=== PATIENT | female | born 1965 | race African-American/Black ===

== ENCOUNTER 2016-07-08 11:51 | Emergency (ER) | payer MEDICAID, OTHER ==
[~2016-07-08] VITALS: Ht 162.6 cm; Wt 83.0 kg
[~2016-07-08 11:51] MED LIST: NORCO 5-325 TA1 EACH PO
[2016-07-08] MEDS ORDERED: traMADol 50mg tab ORAL ONE (12:15)
--- NOTE | 2016-07-08 12:29 | Emergency Room Report ---
History of Present Illness General Chief Complaint: Lower Extremity Injury Source: Patient (DEANDRE RUSSELL) Present Illness HPI The patient is a 51-year-old female presenting for left ankle pain which began today. The patient states that she was walking and stepped on a rock and felt the ankle roll underneath her. The patient experienced pain and swelling to the area. Pain is described as a 9/10 dull ache it is worse with walking. No radiating pain. Patient denies any prior injury to the ankle. The patient denies any numbness or tingling. The patient has not tried any pain medications (DEANDRE RUSSELL P.A.) Allergies: Coded Allergies: AMOXICILLIN (Verified Allergy, Severe, Anaphylaxis & GI UPSET, 03/02/12) Patient History Past Medical History: see triage record Pertinent Family History: none Reviewed Nursing Documentation: PMH: Agreed, PSxH: Agreed (DEANDRE RUSSELL) Nursing Documentation-PMH Hx Cerebrovascular Accident: No - SCIATICA (DEANDRE RUSSELL.ABrett) Review of Systems All Other Systems: negative except mentioned in HPI (DEANDRE RUSSELL P.ABrett) Physical Exam Vital Signs Date Time Temp Pulse Resp B/P Pulse Ox O2 Delivery O2 Flow Rate FiO2 07/08/16 11:57 98.1 78 20 120/71 100 Room Air Sp02 EP Interpretation: reviewed, normal General Appearance: no apparent distress, alert, GCS 15, non-toxic Head: normocephalic, atraumatic Eyes: bilateral eye PERRL, bilateral eye normal inspection Musculoskeletal: back normal, normal range of motion, swelling - TTP over lateral ankle, tender - TTP over the lateral mal. Neurologic: alert, oriented x3, responsive, motor strength/tone normal, sensory intact, speech normal, abnormal gait - antalgic gait Psychiatric: judgement/insight normal, memory normal, mood/affect normal, no suicidal/homicidal ideation Skin: normal color, no rash, warm/dry, well hydrated Lymphatic: no adenopathy (DEANDRE RUSSELL.ABrett) Procedures Splinting Splinting : Consent: Verbal Location: L ankle Hand-Made Type: plaster Splint: poserior short Pre-Proc Neuro Vasc Exam: normal Post-Proc Neuro Vasc Exam: normal Patient Tolerated: Well Complications: None (DEANDRE RUSSELL.[place]) Medical Decision Making PA Attestation Dr. Temple is my supervising physician. Patient management was discussed with my supervising physician (DEANDRE RUSSELL) Diagnostic Impression: Primary Impression: Ankle sprain ER Course The patient is a 51-year-old female presenting for left ankle pain which began today Ddx considered include but not limited to sprain/strain, fracture, contusion PE: vitals WNL. NAD Left ankle: There is 1+ pitting edema to the lateral malleolus with overlying tenderness to palpation. No ecchymosis. Lack of range of motion Pt walks with antalgic gait Xray shows + STS. Otherwise unremarkable Pt is given motrin and tramadol for pain with good relief. Posterior short leg splint is placed and pt is given crutches. ER precautions are given and the patient will Fu with PMD (DEANDRE RUSSELL) ER Course Scribe documentation reviewed by me and is accurate (Timothy Temple M.D.) Other X-Ray Diagnostic Results Other X-Ray Diagnostic Results : X-Ray Ordered: L ankle Date: Jul 08, 2016 EP Interpretation: Yes Findings: no fractures, no dislocation, other - + STS Number of Views: 3 PA Scribe Text I am acting as scribe for my supervising physician. My supervising physician's interpretation of the L ankle xrays are there are no fractures, dislocations. There is + soft tissue swelling. (DEANDRE RUSSELLABrett) Last Vital Signs Date Time Temp Pulse Resp B/P Pulse Ox O2 Delivery O2 Flow Rate FiO2 07/08/16 11:57 98.1 78 20 120/71 100 Room Air Status: improved (DEANDRE RUSSELL P.A.) Disposition: HOME, SELF-CARE Condition: Improved Scripts Tramadol Hcl* (ULTRAM*) 50 Mg Tablet 50 MG ORAL Q6H Y for For Pain, #8 TAB 0 Refills Prov: ZAINABANDEANDRE P.A. 07/08/16 Ibuprofen* (MOTRIN*) 600 Mg Tablet 600 MG ORAL Q8H Y for For Pain, #30 TAB 0 Refills Prov: ZAINABANDEANDRE P.A. 07/08/16 DEANDRE RUSSELL P.A. Jul 08, 2016 12:29 Timothy Temple M.D. Jul 09, 2016 15:12
[2016-07-08] MEDS ORDERED: IBUPROFEN600 MG ORAL (13:05)
[2016-07-08] MEDS ORDERED: TRAMADOL HCL50 MG ORAL (13:05)
[2016-07-08 13:59] VITALS: BP 122/73
--- NOTE | 2016-07-08 18:15 | Diagnostic Imaging Report ---
Indication: PAIN Technique: 3 views of the left ankle Comparison: none Findings: There is minimal lateral soft tissue swelling. Small osseous fragments are seen dorsal to the anterior talus. No associate soft tissue swelling. Impression: Lateral soft tissue swelling Small osseous fragments dorsal to the anterior talus, suspect old injury or heterotopic ossification, acute avulsion injury not completely excludable. Correlate with clinical findings
== END 2016-07-08 14:05 | disposition home or self-care (01) ==
LOC: EMR 13:15
DX: S93.402A Sprain of unspecified ligament of left ankle, initial encounter (principal); W18.09XA Striking against other object with subsequent fall, initial encounter; Y93.9 Activity, unspecified; Y92.9 Unspecified place or not applicable; Z88.1 Allergy status to other antibiotic agents; M54.30 Sciatica, unspecified side
CPT/HCPCS: 29515; 99284

== ENCOUNTER 2017-06-15 19:26 | Emergency (ER) | payer MEDICAID, OTHER ==
[~2017-06-15] VITALS: Ht 162.6 cm; Wt 95.3 kg
[~2017-06-15 19:26] MED LIST changes: +IBUPROFEN600 MG ORAL; +TRAMADOL HCL50 MG ORAL
[2017-06-15] MEDS ORDERED: GABAPENTIN600 MG ORAL (19:34)
[2017-06-15 20:01] LABS: APPEARANCE,URINE CLEAR; BILIRUBIN, URINE NEGATIVE (NEGATIVE); COLOR,URINE PALE YELLOW; GLUCOSE, URINE (UA) NEGATIVE (NEGATIVE); KETONES,URINE NEGATIVE (NEGATIVE); LEUKOCYTE ESTERASE ,URINE 1+ (NEGATIVE); NITRITE,URINE NEGATIVE (NEGATIVE); PH,URINE 6 (4.5-8.0); PROTEIN,URINE NEGATIVE (NEGATIVE); UROBILINOGEN,URINE NORMAL MG/DL (0.0-1.0)
[2017-06-15 20:10] LABS: BASOPHILS % (AUTO) 1.3 % (0.0-2.0); EOSINOPHILS % (AUTO) 9.8 % (0.0-3.0); HEMATOCRIT 40.8 % (37.0-47.0); HEMOGLOBIN 13.9 G/DL (12.0-16.0); LYMPHOCYTES % (AUTO) 35.3 % (20.0-45.0); MEAN CORPUSCULAR VOLUME 96 FL (80-99); MONOCYTES % (AUTO) 10.2 % (1.0-10.0); NEUTROPHILS % (AUTO) 43.4 % (45.0-75.0); PLATELET COUNT 277 K/UL (150-450); RED BLOOD COUNT 4.24 M/UL (4.20-5.40); RED CELL DISTRIBUTION WIDTH 11.8 % (11.6-14.8); WHITE BLOOD COUNT 8.2 K/UL (4.8-10.8)
--- NOTE | 2017-06-15 20:19 | Emergency Room Report ---
History of Present Illness General Chief Complaint: Abdominal Pain Source: Patient Present Illness HPI 52-year-old female presents ED for evaluation. Patient complaining of lower abdominal pain. Started yesterday. Throbbing, /10, nonradiating. Denies nausea or vomiting. Denies any diarrhea. Denies fevers or chills. Notes increased urination. Denies flank pain. No other aggravating relieving factors. Denies any other associated symptoms Allergies: Coded Allergies: AMOXICILLIN (Verified Allergy, Severe, Anaphylaxis & GI UPSET, 03/02/12) Patient History Past Medical History: none Past Surgical History: none Pertinent Family History: none Social History: Denies: smoking, alcohol use, drug use Now: No Immunizations: UTD Reviewed Nursing Documentation: PMH: Agreed, PSxH: Agreed Nursing Documentation-PMH Hx Cerebrovascular Accident: No - SCIATICA Review of Systems All Other Systems: negative except mentioned in HPI Physical Exam Vital Signs Date Time Temp Pulse Resp B/P (MAP) Pulse Ox O2 Delivery O2 Flow Rate FiO2 06/15/17 19:30 98.4 76 18 121/82 97 Room Air 98.4 Sp02 EP Interpretation: reviewed, normal General Appearance: no apparent distress, alert, GCS 15, non-toxic Head: normocephalic, atraumatic Eyes: bilateral eye normal inspection, bilateral eye PERRL ENT: hearing grossly normal, normal pharynx, no angioedema, normal voice Neck: full range of motion, supple/symm/no masses Respiratory: chest non-tender, lungs clear, normal breath sounds, speaking full sentences Cardiovascular #1: regular rate, rhythm, no edema Cardiovascular #2: 2+ carotid (R), 2+ carotid (L), 2+ radial (R), 2+ radial (L) , 2+ dorsalis pedis (R), 2+ dorsalis pedis (L) Gastrointestinal: normal bowel sounds, soft, non-distended, no guarding, no rebound, tenderness - suprapubic Rectal: deferred Genitourinary: normal inspection, no CVA tenderness Musculoskeletal: back normal, gait/station normal, normal range of motion, non- tender Neurologic: alert, oriented x3, responsive, motor strength/tone normal, sensory intact, speech normal Psychiatric: judgement/insight normal, memory normal, mood/affect normal, no suicidal/homicidal ideation Reflexes: 3+ bicep (R), 3+ bicep (L), 3+ tricep (R), 3+ tricep (L), 3+ knee (R) , 3+ knee (L) Skin: normal color, no rash, warm/dry, well hydrated Lymphatic: no adenopathy Medical Decision Making Diagnostic Impression: Primary Impression: UTI (urinary tract infection) Qualified Codes: N39.0 - Urinary tract infection, site not specified ER Course Hospital Course 52-year-old female presents to ED complaining of lower abd pain, increased urination Differential diagnoses include: UTI, cystitis, pyelonephritis Clinical course Patient placed on stretcher. After initial history and physical I ordered labs , UA no leukocytosis, hb/hct stable, electrolytes ok, UA + bacteria Discussed findings with patient. Abdomen is soft. No guarding rebound. Labs are unremarkable. Vital stable. I see no reason for imaging at this time. Clinical findings consistent with UTI Diagnosis - UTI Stable and discharged home with prescriptions for Rx macrobid. Instructed to followup with PMD. Return to ED if symptoms recur or worsen Labs Test 06/15/17 19:30 06/15/17 19:55 Urine Color Pale yellow Urine Appearance Clear Urine pH 6 (4.5-8.0) Urine Specific [place] 1.015 (1.005-1.035) Urine Protein Negative (NEGATIVE) Urine Glucose (UA) Negative (NEGATIVE) Urine Ketones Negative (NEGATIVE) Urine Occult Blood 1+ (NEGATIVE) Urine Nitrite Negative (NEGATIVE) Urine Bilirubin Negative (NEGATIVE) Urine Urobilinogen Normal MG/DL (0.0-1.0) Urine Leukocyte Esterase 1+ (NEGATIVE) Urine RBC 2-4 /HPF (0 - 2) Urine WBC 5-10 /HPF (0 - 2) Urine Squamous Epithelial Cells Few /LPF (NONE/OCC) Urine Bacteria Few /HPF (NONE) White Blood Count 8.2 K/UL (4.8-10.8) Red Blood Count 4.24 M/UL (4.20-5.40) Hemoglobin 13.9 G/DL (12.0-16.0) Hematocrit 40.8 % (37.0-47.0) Mean Corpuscular Volume 96 FL (80-99) Mean Corpuscular Hemoglobin 32.8 PG (27.0-31.0) Mean Corpuscular Hemoglobin Concent 34.0 G/DL (32.0-36.0) Red Cell Distribution Width 11.8 % (11.6-14.8) Platelet Count 277 K/UL (150-450) Mean Platelet Volume 6.4 FL (6.5-10.1) Neutrophils (%) (Auto) 43.4 % (45.0-75.0) Lymphocytes (%) (Auto) 35.3 % (20.0-45.0) Monocytes (%) (Auto) 10.2 % (1.0-10.0) Eosinophils (%) (Auto) 9.8 % (0.0-3.0) Basophils (%) (Auto) 1.3 % (0.0-2.0) Sodium Level 138 MMOL/L (136-145) Potassium Level 4.2 MMOL/L (3.5-5.1) Chloride Level 104 MMOL/L (98-107) Carbon Dioxide Level 28 MMOL/L (21-32) Anion Gap 6 mmol/L (5-15) Blood Urea Nitrogen 16 mg/dL (7-18) Creatinine 1.0 MG/DL (0.55-1.30) Estimat Glomerular Filtration Rate > 60 mL/min (>60) Glucose Level 113 MG/DL (74-106) Calcium Level 9.2 MG/DL (8.5-10.1) Total Bilirubin 0.2 MG/DL (0.2-1.0) Aspartate Amino Transf (AST/SGOT) 22 U/L (15-37) Alanine Aminotransferase (ALT/SGPT) 28 U/L (12-78) Alkaline Phosphatase 92 U/L (46-116) Total Protein 7.1 G/DL (6.4-8.2) Albumin 3.4 G/DL (3.4-5.0) Globulin 3.7 g/dL Albumin/Globulin Ratio 0.9 (1.0-2.7) Last Vital Signs Date Time Temp Pulse Resp B/P (MAP) Pulse Ox O2 Delivery O2 Flow Rate FiO2 06/15/17 19:30 98.4 76 18 121/82 97 Room Air 98.4 Status: improved Disposition: HOME, SELF-CARE Condition: Stable Scripts Nitrofurantoin Monohyd/M-Cryst* (MACROBID 100 MG*) 100 Mg Capsule 100 MG ORAL EVERY 12 HOURS for 7 Days, CAP Prov: [place],SMITA M.D. 06/15/17 SMITA OLIVARES M.D. Jun 15, 2017 20:19
[2017-06-15 20:27] LABS: ANION GAP 6 mmol/L (5-15); BLOOD UREA NITROGEN 16 mg/dL (7-18); CALCIUM 9.2 MG/DL (8.5-10.1); CARBON DIOXIDE 28 MMOL/L (21-32); CHLORIDE 104 MMOL/L (98-107); POTASSIUM 4.2 MMOL/L (3.5-5.1); SODIUM 138 MMOL/L (136-145)
[2017-06-15 20:32] LABS: ALANINE AMINOTRANSFERASE 28 U/L (12-78); ALBUMIN 3.4 G/DL (3.4-5.0); ALBUMIN/GLOBULIN RATIO 0.9 (1.0-2.7); ALKALINE PHOSPHATASE 92 U/L (46-116); ASPARTATE AMINO TRANSFERASE 22 U/L (15-37); BILIRUBIN,TOTAL 0.2 MG/DL (0.2-1.0)
[2017-06-15] MEDS ORDERED: NITROFURANTOIN100 M2 ORAL (20:47)
[2017-06-15 20:55] VITALS: BP 138/83
== END 2017-06-15 21:05 | disposition home or self-care (01) ==
LOC: EMR 21:04
DX: N39.0 Urinary tract infection, site not specified (principal); Z88.0 Allergy status to penicillin
CPT/HCPCS: 36415; 80053; 81003; 85025; 99283

== ENCOUNTER 2017-07-23 15:00 | Emergency (ER) | payer OTHER ==
[~2017-07-23] VITALS: Ht 162.6 cm; Wt 95.3 kg
[~2017-07-23 15:00] MED LIST changes: +GABAPENTIN600 MG ORAL; +NITROFURANTOIN100 M2 ORAL
[2017-07-23 15:39] VITALS: BP 132/84
[2017-07-23] MEDS ORDERED: HYDROcodone/Acetamin 7.5/325 tab ORAL ONE (16:00)
[2017-07-23] MEDS ORDERED: Ketorolac 60mg Inj IM ONE (16:00)
--- NOTE | 2017-07-23 16:13 | Emergency Room Report ---
History of Present Illness General Chief Complaint: Pain Source: Patient Present Illness HPI 52-year-old female presents to the emergency department complaining of 10 out of 10 in severity constant and sharp left lower back pain 2 days. Patient states initially she believes her pain somewhat radiated toward the stomach however it continues to be localized mainly in the left side of her lower back. Patient states that her symptoms of pain can be exacerbated with certain movements. Patient reports history of spinal arthritis, sciatica, UTIs. Patient denies history of renal stones. She denies nausea, vomiting, fevers, chills, urinary urgency, frequency or dysuria. Patient denies hematuria. Denies abdominal tenderness, constipation or diarrhea. Patient denies trauma or fall. She reports that she has been doing a bit more activities, [place] she normally does. Denies numbness tingling or loss of sensation or gross motor movements of the extremities, incontinence of bowel or bladder. Denies CP, Palpitations, LOC, AMS, dizziness, Changes in Vision, Sensation, paresthesias, or a sudden severe headache. Allergies: Coded Allergies: AMOXICILLIN (Verified Allergy, Severe, Anaphylaxis & GI UPSET, 03/02/12) Patient History Past Medical History: see triage record Past Surgical History: none Pertinent Family History: none Last Menstrual Period: Post Now: No Reviewed Nursing Documentation: PMH: Agreed; PSxH: Agreed Nursing Documentation-PMH Hx Cerebrovascular Accident: No - SCIATICA Review of Systems All Other Systems: negative except mentioned in HPI Physical Exam Vital Signs Date Time Temp Pulse Resp B/P (MAP) Pulse Ox O2 Delivery O2 Flow Rate FiO2 07/23/17 15:32 98.2 67 17 132/84 96 Room Air 98.2 Sp02 EP Interpretation: reviewed, normal General Appearance: no apparent distress, alert, GCS 15, non-toxic Head: normocephalic, atraumatic ENT: hearing grossly normal, normal voice Neck: full range of motion Respiratory: lungs clear, normal breath sounds, speaking full sentences Cardiovascular #1: regular rate, rhythm Gastrointestinal: normal bowel sounds, non tender, soft Genitourinary: no CVA tenderness Musculoskeletal: back normal, gait/station normal, normal range of motion, tender - Some left sided lumbar paraspinal ttp. no midline ttp. Neurologic: alert, oriented x3, responsive, motor strength/tone normal, sensory intact, speech normal, grossly normal Psychiatric: judgement/insight normal Skin: normal color, no rash, warm/dry, well hydrated Lymphatic: no adenopathy Medical Decision Making PA Attestation Dr. carmona is my supervising Physician whom patient management has been discussed with. Diagnostic Impression: Primary Impression: Left flank pain Additional Impression: Back pain Qualified Codes: M54.5 - Low back pain ER Course 52-year-old female presents to the emergency department complaining of 10 out of 10 in severity constant and sharp left lower back pain 2 days. Patient states initially she believes her pain somewhat radiated toward the stomach however it continues to be localized mainly in the left side of her lower back. Patient states that her symptoms of pain can be exacerbated with certain movements. Patient reports history of spinal arthritis, sciatica, UTIs. Patient denies history of renal stones. She denies nausea, vomiting, fevers, chills, urinary urgency, frequency or dysuria. Patient denies hematuria. Denies abdominal tenderness, constipation or diarrhea. Patient denies trauma or fall. She reports that she has been doing a bit more activities, [place] she normally does. Denies numbness tingling or loss of sensation or gross motor movements of the extremities, incontinence of bowel or bladder. Denies CP, Palpitations, LOC, AMS, dizziness, Changes in Vision, Sensation, paresthesias, or a sudden severe headache. Ddx considered but are not limited to Diverticulitis, acute appy, diarrhea,UC, PUD, GE, pancreatitis, gallstone, kidney stone, pyelonephritis, UTI, obstruction. Vital signs: are WNL, pt. is afebrile H&PE are most consistent with most likely symptoms secondary to hx of arthritic changes in the back, however Renal stone or UTI needs to be r/o. ORDERS: - UA: unremarkable no evidence of urinary infection, does not suggest stones. ED INTERVENTIONS: -- [place] PO -Toradol IM DISCHARGE: At this time pt. is stable for d/c to home. Will provide printed patient care instructions, and any necessary prescriptions. Care plan and follow up instructions have been discussed with the patient prior to discharge. Last Vital Signs Date Time Temp Pulse Resp B/P (MAP) Pulse Ox O2 Delivery O2 Flow Rate FiO2 07/23/17 15:39 98.2 78 17 132/84 96 Room Air 98.2 Disposition: HOME, SELF-CARE Condition: Stable Scripts Naproxen* (NAPROXEN*) 375 Mg Tablet. 375 MG ORAL TWICE A DAY for 5 Days, #10 TAB Prov: Erika Mccormick 07/23/17 Tramadol Hcl* (ULTRAM*) 50 Mg Tablet 50 MG ORAL Q8HR PRN for For Pain, #3 TAB 0 Refills Prov: Erika Mccormick 07/23/17 Referrals: MARGE AYALA,REFERRING (PCP) Patient Instructions: Flank Pain Additional Instructions: Take medications as directed. Follow up with a Primary Care Provider in 3-5 days, even if your symptoms have resolved. --Please review list of primary care clinics, if you do not already have a primary care provider Return sooner to ED if new symptoms occur, or current symptoms become worse. - Please note that this Emergency Department Report was dictated using [employer]aven[employer]ating pump operator technology software, occasionally this can lead to erroneous entry secondary to interpretation by the dictation equipment. Erika Mccormick Jul 23, 2017 16:13
[2017-07-23 16:35] LABS: APPEARANCE,URINE CLEAR; BILIRUBIN, URINE NEGATIVE (NEGATIVE); COLOR,URINE PALE YELLOW; GLUCOSE, URINE (UA) NEGATIVE (NEGATIVE); KETONES,URINE NEGATIVE (NEGATIVE); LEUKOCYTE ESTERASE ,URINE 1+ (NEGATIVE); NITRITE,URINE NEGATIVE (NEGATIVE); PH,URINE 6 (4.5-8.0); PROTEIN,URINE NEGATIVE (NEGATIVE); UROBILINOGEN,URINE NORMAL MG/DL (0.0-1.0)
[2017-07-23] MEDS ORDERED: NAPROXEN375 M2 ORAL (17:11)
[2017-07-23] MEDS ORDERED: TRAMADOL HCL50 MG ORAL (17:11)
[2017-07-23 17:20] VITALS: BP 120/82
[2017-07-23 17:21] VITALS: BP 120/82
== END 2017-07-23 17:22 | disposition home or self-care (01) ==
LOC: EMR 15:51
DX: R10.9 Unspecified abdominal pain (principal); M54.5 Low back pain; Z88.0 Allergy status to penicillin
CPT/HCPCS: 81003; 96372; 99284